=== PATIENT | female | born 1990 | race Caucasian/White ===

== ENCOUNTER 2017-07-22 10:53 | Inpatient (IN) | payer OTHER ==
[~2017-07-22] VITALS: Ht 162.6 cm; Wt 64.1 kg
[~2017-07-22 10:53] MED LIST: ABIL1TAB13 PO; ADDE15CA3 PO; ADDE20CA3 PO; BUPR15TA PO; DEPA1TAB3 PO; DEPA500T2 PO; DISU250T PO; FLUO20CA19 PO; FOLI1TAB4 PO; MINI1CAP PO; MULTCAP PO; NALT50TA4 PO; OXAZ10CA3 PO; PRAZ1CAP PO; QUET1TAB8 PO; REVI50TA2 PO; TRAZ50TA11 PO; VITA100T2 PO; WELLTAB38 PO; ZOLP10TA2 PO; unable to obtain
[2017-07-22] MEDS ORDERED: LORA1TAB12 PO (11:23)
[2017-07-22] MEDS ORDERED: ARIP1TAB6 PO (11:23)
[2017-07-22] MEDS ORDERED: ADDE15CA3 PO (11:23)
[2017-07-22] MEDS ORDERED: ZOLP10TA2 PO (11:23)
[2017-07-22] MEDS ORDERED: LAMO100T PO (11:23)
[2017-07-22 11:51] LABS: MEAN CORPUSCULAR HEMOGLOBIN 31.8 pg (27.0-33.0); MEAN CORPUSCULAR HGB CONC 34.4 g/dl (32.0-36.5); MEAN CORPUSCULAR VOLUME 92.4 fl (80.0-96.0); PLATELET COUNT, AUTOMATED 321 10^3/uL (150-450); RED CELL DISTRIBUTION WIDTH 12.6 % (11.5-14.5); WHITE BLOOD COUNT 12.4 10^3/uL (4.0-10.0)
[2017-07-22 12:06] LABS: CONTROL LINE HCG INT CTR LINE PRESENT
[2017-07-22 12:15] LABS: METHADONE URINE NEGATIVE (NEGATIVE)
[2017-07-22 12:25] LABS: ALBUMIN 4.2 GM/DL (3.2-5.2); ALKALINE PHOSPHATASE 95 U/L (45-117); ALT/SGPT 48 U/L (12-78); ANION GAP 5 MEQ/L (8-16); AST/SGOT 23 U/L (7-37); BILIRUBIN,DIRECT 0.2 MG/DL (0.0-0.2); BILIRUBIN,TOTAL 0.3 MG/DL (0.2-1.0); BLOOD UREA NITROGEN 11 MG/DL (7-18); CALCIUM LEVEL 9.2 MG/DL (8.5-10.1); CARBON DIOXIDE LEVEL 28 MEQ/L (21-32); CHLORIDE LEVEL 106 MEQ/L (98-107); CREATININE FOR GFR 0.49 MG/DL (0.55-1.02); GLOMERULAR FILTRATION RATE > 60.0 (>60); GLUCOSE, FASTING 97 MG/DL (70-105); POTASSIUM SERUM 4.2 MEQ/L (3.5-5.1); SODIUM LEVEL 139 MEQ/L (136-145); TOTAL PROTEIN 7.2 GM/DL (6.4-8.2)
[2017-07-22] MEDS: IBUPROFEN 600 MG TAB PO ONE ×2 (13:38→13:40)
[2017-07-22 16:44] VITALS: BP 139/79
[2017-07-22] MEDS: NICOTINE 21MG/24HR 1 EA TRANSDERMAL TD SCH (17:30)
[2017-07-22] MEDS ORDERED: MOM 30ML SUSPENSION UDC PO PRN (19:15)
[2017-07-22] MEDS ORDERED: MAALOX 30 ML SUSP *UDC PO PRN (19:15)
[2017-07-22] MEDS ORDERED: OLANZapine 5 MG TAB PO PRN (19:15)
[2017-07-22] MEDS: traZODone 50 MG TAB PO PRN (20:17)
[2017-07-22] MEDS: ACETAMINOPHEN TAB 650MG DOSE (2X325MG) PO PRN (20:18)
[2017-07-23 06:58] VITALS: BP 118/57
[2017-07-23] MEDS: NICOTINE 21MG/24HR 1 EA TRANSDERMAL TD SCH (08:57)
[2017-07-23] MEDS: lamoTRIgine 100MG TAB PO SCH (08:58)
--- NOTE | 2017-07-23 09:06 | HPEPDOC ---
[facility] Medical History & Physical Date of Admission Jul 22, 2017 History and Physical PCP: Regine ATTENDING: Dr. Gt Lawton HPI: 26yoF admitted to [facility] for unspecified depressive disorder, being medically examined today. Patient states that recently she pulled a muscle in her neck on the right side. There is tenderness in the muscular area. There is no pain over the cervical spine however she states she has chronic neck pain issues. She denies any radiating pain down the arms. No weakness, numbness, or tingling in upper extremities. She does not complain of headaches. Complaint of low back pain. No weakness, numbness, or tingling in lower extremities. Patient states she takes Lamictal for her mood. Denies any fevers, chills, weakness, fatigue, RAI, CP, SOB, cough, palpitations, abdominal pain, N/V/D or changes in bowel or bladder habits. PMHx: Anxiety Depression History of SI/overdose Bipolar disorder PTSD Insomnia History of self-mutilation/cutting History of alcohol abuse/completed rehabilitation 11/15 Tobacco use PSHX: Exploratory laparoscopy SOCHX: Resides in: [place], from [place] Marital Status: Kids: 3 Employment: [employer] Tobacco use: One half pack per day ETOH: One beer 3-4 days per week. On Saturday she states she drank 4-5. Illicit Drugs: Patient states has used some marijuana recently. IV Drug Use: Denies Tattoos done unprofessionally: Denies FAMHX: Mother: Alive, well Father: Alive, well Siblings: Alive, well Children: Alive, well Unexpected deaths due to medical reasons: None. ROS: As noted in HPI, otherwise 11pt ROS of systems reviewed and remarkable for LMP 07/22/17. PE: GEN: 26 yo F, appears stated age. Well-nourished, well developed. No acute distress. Alert and oriented x 3. Pleasant, interactive. HEENT: Normocephalic, atraumatic. Pupils are equal, round, and reactive to light. Extraocular movements are intact. No nystagmus appreciated. Sclera are nonicteric. Conjunctiva without injection. Nose midline. Nasal turbinates without bogginess. EACs both patent BL. TMs both visualized and curtis with good cone of light, no bulging or erythema. No facial asymmetry. Moist mucous membranes. Dentition fair. Pharynx pink and moist, no cobblestoning. Neck supple , trachea midline. No lymphadenopathy or thyromegaly appreciated. CHEST: Regular rate and rhythm, +S1, +S2 LUNGS: Clear to auscultation bilaterally. No wheezes, rales, or rhonchi. Breathing appears symmetric and easy. Patient is speaking in full sentences. No accessory muscle use. ABD: Round, soft, non-tender, non-distended. +Bowel sounds throughout. No rebound or guarding. No costovertebral angle tenderness. EXT: Pulses 2+ bilaterally dorsalis pedis and radial. No lower extremity edema appreciated. SKIN: [place], dry, warm. Capillary refill <2sec. No rashes. Healed cuts are noted to the left wrist, no new cuts noted. NEURO: Alert and oriented x 3. Cranial nerves III-XII are intact. No focal deficits appreciated. EKG: Pending A&P: 25yoF admitted to [facility] for SI 1. Psych. Plan per Psychiatry. EKG pending. 2. Tobacco use. NicoDerm available. 3. Leukocytosis. Patient is afebrile. Asymptomatic. Recheck CBC in a.m. 4. Follow up with PCP on discharge. Regine. 5. Chronic neck pain. Check x-ray of cervical spine. Continue Tylenol 650 mg every 6 hours as needed. Add ibuprofen 400 mg every 6 hours as needed. Lidoderm patch applied to the right side of the neck daily. Consider pain management if needed. 6. Staff member Gina MCKEON present throughout exam. Vital Signs Vital Signs Date Time Temp Pulse Resp B/P (MAP) Pulse Ox O2 Delivery O2 Flow Rate FiO2 07/23/17 06:58 97.1 67 14 118/57 (77) 07/22/17 16:44 98 Room Air Laboratory Data Labs 24H Laboratory Tests 2 07/22/17 11:37: Nucleated Red Blood Cells % (auto) 0.0, Anion Gap 5L, Glomerular Filtration Rate > 60.0, Calcium Level 9.2, Aspartate Amino Transf (AST/SGOT) 23, Alanine Aminotransferase (ALT/SGPT) 48, Alkaline Phosphatase 95, Total Bilirubin 0.3, Direct Bilirubin 0.2, Total Protein 7.2, Albumin 4.2, Albumin/Globulin Ratio 1.40, Thyroid Stimulating Hormone (TSH) 0.842, Human Chorionic Gonadotropin, Qual NEGATIVE, Salicylates Level 1.7L, Acetaminophen Level < 2.0L, Ethyl Alcohol Level < 0.003 07/22/17 11:38: Urine Amphetamines Screen NEGATIVE, Urine Benzodiazepines Screen NEGATIVE, Urine Opiates Screen NEGATIVE, Urine Methadone Screen NEGATIVE, Urine Barbiturates Screen NEGATIVE, Urine Phencyclidine Screen NEGATIVE, Urine Cocaine Metabolite Screen NEGATIVE, Urine Cannabinoids Screen NEGATIVE CBC/BMP Laboratory Tests 07/22/17 11:37 Red Blood Count 4.59, Mean Corpuscular Volume 92.4, Mean Corpuscular Hemoglobin 31.8, Mean Corpuscular Hemoglobin Concent 34.4, Red Cell Distribution Width 12.6 Home Medications Scheduled Amphetamine/Dextroamphetamine (Adderall Xr 15 mg) 1 Cap Cap, 1 CAP PO DAILY Scheduled PRN Lorazepam (Lorazepam) 1 Mg Tab, 1 TAB PO PRN PRN for ANXIETY/AGITATION Allergies Coded Allergies: Promethazine (Verified Allergy, Mild, rash, 07/22/17) Sophie Miranda Jul 23, 2017 09:06
[2017-07-23] MEDS: LIDOCAINE 5% (LIDODERM) PATCH TD SCH (09:12)
--- NOTE | 2017-07-23 10:33 | REP ---
Clinical: Neck pain . Technique: AP, lateral, flexion/extension, bilateral oblique, and open-mouth views. Findings: Alignment and lordosis is maintained. There is no evidence for acute fracture / compression injury or subluxation. No significant degenerative changes are appreciated. Oblique views demonstrate patent neural foramen. Open mouth view demonstrates normal C1-C2 articulation and odontoid process. Impression: Normal age-appropriate cervical spine series. Signed by Rosendo Cook MD 07/23/2017 10:24 A
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
[2017-07-23] MEDS: IBUPROFEN 400 MG TAB PO PRN (12:37)
[2017-07-23] MEDS: FLUoxetine 20 MG CAP PO SCH (13:25)
[2017-07-23] MEDS: ACETAMINOPHEN TAB 650MG DOSE (2X325MG) PO PRN (13:26)
[2017-07-23] MEDS ORDERED: LORazepam 0.5 MG TAB PO PRN (13:30)
[2017-07-23] MEDS: **NOTE PATIENT COMMENT** MISC XX SCH (21:00)
[2017-07-23] MEDS: PRAZOSIN 1 MG CAP PO SCH (21:52)
[2017-07-23] MEDS: traZODone 50 MG TAB PO PRN (21:52)
[2017-07-24 07:39] LABS: MEAN CORPUSCULAR HEMOGLOBIN 31.1 pg (27.0-33.0); MEAN CORPUSCULAR HGB CONC 33.5 g/dl (32.0-36.5); MEAN CORPUSCULAR VOLUME 92.9 fl (80.0-96.0); PLATELET COUNT, AUTOMATED 296 10^3/uL (150-450); RED CELL DISTRIBUTION WIDTH 12.4 % (11.5-14.5); WHITE BLOOD COUNT 10.9 10^3/uL (4.0-10.0)
[2017-07-24] MEDS: lamoTRIgine 100MG TAB PO SCH (08:27)
[2017-07-24] MEDS: FLUoxetine 20 MG CAP PO SCH (08:28)
[2017-07-24] MEDS: IBUPROFEN 400 MG TAB PO PRN (08:28)
[2017-07-24] MEDS: NICOTINE 21MG/24HR 1 EA TRANSDERMAL TD SCH (09:00)
[2017-07-24] MEDS: LIDOCAINE 5% (LIDODERM) PATCH TD SCH (09:04)
[2017-07-24] MEDS: ACETAMINOPHEN TAB 650MG DOSE (2X325MG) PO PRN ×2 (09:35→15:59)
--- NOTE | 2017-07-24 17:41 | MHIPNPDOC ---
[facility] Progress Note Progress Note DATE OF SERVICE: 07/24/17 HISTORY: As per ED report: "Patient presented this morning with a report of worsening sx of depression over the last couple of weeks. She reports being seen by her PCP earlier today & revealed this information. Her PCP reportedly recommended that she present here. Patient states that her provider at [facility] retired in May & made no f/u arrangements for her. She says that the other provider at the clinic refused to take her on & as a result, she has since run out of her meds. She says that she has noticed a decline in her mental health over the last couple of weeks, including worsening sx of depression. She reports h/o Bipolar D /O, although denies any recent manic/hypomanic episodes. She admits that she has been thinking about suicide more than usual lately, including ways in which she could end her life. She denies daily alcohol use, although admits that her intake has been increasing. She says that her increase is a bad sign, as her previous suicide attempts (overdose & cutting) have all been while under the influence of alcohol. During interview she was noted to be restless & tremulous , with increased PMA. While she is unclear regarding actual intent at this point , she has been clear about her thoughts & potential methods available. She has also reported having h/o both OD & cutting." VITAL SIGNS: See below. NEW TEST RESULTS: Red Blood Count 4.21, Mean Corpuscular Volume 92.9, Mean Corpuscular Hemoglobin 31.1, Mean Corpuscular Hemoglobin Concent 33.5, Red Cell Distribution Width 12.4 CURRENT MEDICATIONS: See below. MENTAL STATUS EXAMINATION: Patient is a 26-year old female, who is alert, dressed in hospital clothes, cooperative, good eye contact, fair hygiene and grooming. Speech: Is Normal in tone, rate and volume. Language skills are good. Thought processes including: Intact. Thought content: Anxious thought about going back home Abstract reasoning, and computation: Fair. Description of associations: Good. Description of abnormal or psychotic thoughts: Denies SI/HI, A/V hallucinations , thought delusions Judgment: Poor Insight: Poor Orientation: o x 3 Recent and remote memory: Intact Attention span and concentration: Fair Language: Normal. Fund of knowledge: Fair. Mood: Anxious Affect: Anxious DIAGNOSES: 1. Bipolar Disorder, depressed 2. PTSD ASSESSMENT: Patient's insight is limited. she says she thought she was going to be discharged today. She doesn't realize she's at high risk for suicide, especially now that she has increased her alcohol intake. MANAGEMENT PLAN: will continue with her same treatment plan. TIME SPENT: 20 minutes. Vital Signs Vital Signs Date Time Temp Pulse Resp B/P (MAP) Pulse Ox O2 Delivery O2 Flow Rate FiO2 07/23/17 21:52 136/74 07/23/17 06:58 97.1 67 14 07/22/17 16:44 98 Room Air Laboratory Data 24H Labs Laboratory Tests 2 07/24/17 07:24: Nucleated Red Blood Cells % (auto) 0.0 CBC/BMP Laboratory Tests 07/24/17 07:24 Red Blood Count 4.21, Mean Corpuscular Volume 92.9, Mean Corpuscular Hemoglobin 31.1, Mean Corpuscular Hemoglobin Concent 33.5, Red Cell Distribution Width 12.4 Current Medications Current Medications Acetaminophen (Tylenol Tab) 650 mg Q6HP PRN PO PAIN / FEVER Last administered on 07/24/17 15:59; Start 07/22/17 at 19:15; Stop 08/21/17 at 19:14 Al Hydrox/Mg Hydrox/Simethicone (Mylanta) 30 ml Q6HP PRN PO HEARTBURN; Start 07/22/17 at 19:15; Stop 08/21/17 at 19:14 Fluoxetine HCl (PROzac) 20 mg QAM PO Last administered on 07/24/17 08:28; Start 07/23/17 at 09:00; Stop 08/22/17 at 08:59 Home Med (Med Rec Complete!) ASDIRECTED XX ; Start 07/22/17 at 14:00; Stop at 14:03; Status DC Ibuprofen (Advil) 400 mg Q6HP PRN PO PAIN Last administered on 07/24/17 08:28 ; Start 07/23/17 at 09:15; Stop 08/22/17 at 09:14 Lamotrigine (LaMICtal) 200 mg QAM PO Last administered on 07/24/17 08:27; Start 07/23/17 at 09:00; Stop 08/22/17 at 08:59 Lidocaine (Lidoderm Patch) 1 patch DAILY TD Last administered on 07/24/17 09: 04; Start 07/23/17 at 09:00; Stop 08/22/17 at 08:59 Lorazepam (Ativan) 0.5 mg TIDP PRN PO ANXIETY; Start 07/23/17 at 13:30; Stop 07/30/17 at 13:29 Magnesium Hydroxide (Milk Of Magnesia) 30 ml DAILYPRN PRN PO CONSTIPATION; Start 07/22/17 at 19:15; Stop 08/21/17 at 19:14 Nicotine (Nicoderm Cq 21mg) 1 patch DAILY TD Last administered on 07/22/17 17 :30; Start 07/22/17 at 09:00; Stop 08/21/17 at 08:59 Non-Formulary Medication ( See Comment Field Below ) REMOVE LIDODERM PATCH DAILY@21 XX ; Start 07/23/17 at 21:00; Stop 08/22/17 at 20:59 Olanzapine (ZyPREXA) 5 mg Q6HP PRN PO ANXIETY/AGITATION; Start 07/22/17 at 19: 15; Stop 08/21/17 at 19:14 Prazosin HCl (Minipress) 1 mg QHS PO Last administered on 07/23/17 21:52; Start 07/23/17 at 21:00; Stop 08/22/17 at 20:59 Trazodone HCl (Desyrel) 50 mg QHSP PRN PO INSOMNIA Last administered on 21:52; Start 07/22/17 at 19:15; Stop 08/21/17 at 19:14 Allergies Coded Allergies: Promethazine (Verified Allergy, Mild, rash, 07/22/17) MARLYS BOOKER MD Jul 24, 2017 17:41
[2017-07-24 18:17] VITALS: BP 127/63
[2017-07-24] MEDS: PRAZOSIN 1 MG CAP PO SCH (21:06)
[2017-07-24] MEDS: **NOTE PATIENT COMMENT** MISC XX SCH (21:07)
[2017-07-24] MEDS: traZODone 50 MG TAB PO PRN (23:12)
[2017-07-25 06:50] VITALS: BP 114/53
[2017-07-25] MEDS: NICOTINE 21MG/24HR 1 EA TRANSDERMAL TD SCH (08:30)
[2017-07-25] MEDS: FLUoxetine 20 MG CAP PO SCH (08:32)
[2017-07-25] MEDS: LIDOCAINE 5% (LIDODERM) PATCH TD SCH (08:32)
[2017-07-25] MEDS: lamoTRIgine 100MG TAB PO SCH (08:32)
[2017-07-25] MEDS: ACETAMINOPHEN TAB 650MG DOSE (2X325MG) PO PRN ×2 (08:34→16:31)
[2017-07-25] MEDS: IBUPROFEN 400 MG TAB PO PRN (09:54)
[2017-07-25] MEDS ORDERED: traZODone 100 MG TAB PO PRN (18:30)
[2017-07-25] MEDS: **NOTE PATIENT COMMENT** MISC XX SCH (20:32)
[2017-07-25 20:44] VITALS: BP 112/57
[2017-07-25 22:42] VITALS: BP 126/67
[2017-07-25] MEDS: PRAZOSIN 1 MG CAP PO SCH (22:42)
[2017-07-26] MEDS: NICOTINE 21MG/24HR 1 EA TRANSDERMAL TD SCH (08:27)
[2017-07-26] MEDS: FLUoxetine 20 MG CAP PO SCH (08:29)
[2017-07-26] MEDS: lamoTRIgine 100MG TAB PO SCH (08:30)
[2017-07-26] MEDS: LIDOCAINE 5% (LIDODERM) PATCH TD SCH (08:30)
[2017-07-26] MEDS ORDERED: TRAZ10TA PO (11:13)
[2017-07-26] MEDS ORDERED: MINI1CAP PO (11:13)
[2017-07-26] MEDS ORDERED: OLAN5TAB PO (11:13)
[2017-07-26] MEDS ORDERED: ATIV1TAB10 PO (11:13)
[2017-07-26] MEDS ORDERED: LAMO10TA PO (11:13)
[2017-07-26] MEDS ORDERED: FLUO20CA19 PO (11:13)
--- NOTE | 2017-07-26 12:00 | IPN ---
DATE OF SERVICE: 07/25/2017 HISTORY: 26-year-old female admitted for treatment of depression, posttraumatic stress disorder, and bipolar disorder. MEDICATIONS: - Lamictal 200 mg by mouth every morning - Prozac 20 mg by mouth every morning - Prazosin 1 mg by mouth daily at bedtime - trazodone 50 mg by mouth daily at bedtime as needed for insomnia SUBJECTIVE: "I could not sleep well. I used to take Ambien". OBJECTIVE: No major changes from yesterday. Patient continues depressed with sad restricted facial expression. Minimal interaction with other patients and staff. Denies side effect from the medication. No evidence of psychotic symptoms. No auditory or visual hallucinations or delusions. MENTAL STATUS EXAMINATION: Patient dressed in [facility]. Patient is cooperative during exam. Has fair eye contact. His speech is low and monotone. Mood is depressed and anxious. Affect is restricted. No delusions or hallucinations. Memory, attention and concentration are fair. Patient is able to contract for safety during her hospitalization. Insight and judgment is limited. ASSESSMENT: 1. Depression. 2. Suicidal ideation. PLAN: 1. Continue with Lamictal 200 mg by mouth daily every morning. 2. Continue Prazosin 1 mg by mouth daily at bedtime. 3. Continue Prozac 20 mg by mouth daily every morning. 4. Increase trazodone to 100 mg by mouth daily at bedtime as needed for insomnia.
--- NOTE | 2017-07-29 12:08 | MHDSPDOC ---
[facility] Discharge Summary Discharge Summary DATE OF ADMISSION: Jul 22, 2017 at 13:08 DATE OF DISCHARGE: Jul 26, 2017 at 14:20 DISCHARGE DIAGNOSES: 1. Bipolar Disorder, depressed 2. PTSD REASON FOR ADMISSION: "My PCP felt I'm at suicidal risk because I'm not in my medication at this time" History of Present Illness HISTORY OF THE PRESENT ILLNESS: As per ED report: "Patient presented this morning with a report of worsening sx of depression over the last couple of weeks. She reports being seen by her PCP earlier today & revealed this information. Her PCP reportedly recommended that she present here. Patient states that her provider at [facility] retired in May & made no f/ u arrangements for her. She says that the other provider at the clinic refused to take her on & as a result, she has since run out of her meds. She says that she has noticed a decline in her mental health over the last couple of weeks, including worsening sx of depression. She reports h/o Bipolar D /O, although denies any recent manic/hypomanic episodes. She admits that she has been thinking about suicide more than usual lately, including ways in which she could end her life. She denies daily alcohol use, although admits that her intake has been increasing. She says that her increase is a bad sign, as her previous suicide attempts (overdose & cutting) have all been while under the influence of alcohol. During interview she was noted to be restless & tremulous , with increased PMA. While she is unclear regarding actual intent at this point , she has been clear about her thoughts & potential methods available. She has also reported having h/o both OD & cutting." She has not been feeling manic lately, but she has been depressed and says she had suicidal thoughts twice. CONSULTANTS INVOLVED: None TREATMENT AND PROGRESS ON THE UNIT : The patient was started on medications at the [facility], she had a good response to them and she did not report negative side effects. She stated she was agreeable to her admission but then, she was asking to be discharged and I explained to her it was not possible because we needed to observe her response to medications and because she was at high risk for suicide. She had two previous suicide attempts and they happened when she was under the influence of alcohol. Initially she tried to minimize her symptoms and finally she admitted she had problems with alcohol although she said she didn't drink everyday. She always said she disagreed with her PCP, she didn't think she needed to be admitted but she didn't recognize the risk of another suicide attempt especially because she had increased the alcohol intake. She wanted to be discharged before Thanksgiving, but she was admitted only 48 hours before Thanksgiving. I explained to her she needed to stay until she was stabilized. she was able to understand and accept this. HOSPITAL COURSE: As above DISCHARGE ASSESSMENT: She was not in danger to self or others, she was not suicidal and not homicidal. She was not psychotic. MENTAL STATUS EXAMINATION ON DISCHARGE: Patient is a 26-year old female, who is alert, dressed in hospital clothes, cooperative, good eye contact, fair hygiene and grooming. Speech: Is Spontaneous and fluent Language skills are good. Thought processes including: coherent Thought content: focused on her discharge Abstract reasoning, and computation: Fair. Description of associations: Good. Description of abnormal or psychotic thoughts: Denies SI/HI, A/V hallucinations and denies thought delusions Judgment: Improved Insight: Improved Orientation: o x 3 Recent and remote memory: Intact Attention span and concentration: Fair Language: Normal. Fund of knowledge: Fair. Mood: Euthymic Affect: Euthymic MEDICATIONS ON DISCHARGE: Amphetamine/Dextroamphetamine (Adderall Xr 15 mg) 1 Cap Cap, 1 CAP PO DAILY, ( Reported) Fluoxetine Hcl (Fluoxetine HCl) 20 Mg Cap, 20 MG PO QAM for DEPRESSION, #10 Lamotrigine (LaMICtal) 100 Mg Tab, 200 MG PO QAM for MOOD, #14 Prazosin HCl (Minipress) 1 Mg Cap, 1 MG PO QHS for NIGHTMARES, #7 Scheduled PRN Lorazepam (Lorazepam) 1 Mg Tab, 1 TAB PO PRN PRN for ANXIETY/AGITATION, ( Reported) Olanzapine (Olanzapine) 5 Mg Tab, 5 MG PO Q6HP PRN for ANXIETY/AGITATION, #28 Trazodone HCl (Trazodone HCl) 100 Mg Tab, 100 MG PO QHSP PRN for INSOMNIA, #7 PLAN/FOLLOWUP ARRANGEMENTS: Follow Up Care Education Label * Mental Health Appt 1 * Mental Health [facility] * Established With This Provider Yes * Therapist Sweetie Xie * * Additional information [facility] is closed on Fridays. [facility] to call pt with follow up appointment. Follow Up Care Education Label * Chemical Dependency Appt1 * Chemical Dependency [facility] * Established With This Provider No NEW PATIENT APPOINTMENT * Therapist AVAILABLE THERAPIST * Date Jul 29, 2017 * Time 09:00 * Address of Clinic or Practice [address] [place] [address] The amount of time spent in the coordination of care for this patient was approximately 30 minutes. Vital Signs/I&Os Vital Signs Date Time Temp Pulse Resp B/P (MAP) Pulse Ox O2 Delivery O2 Flow Rate FiO2 07/25/17 22:42 126/67 07/25/17 20:44 98.1 72 16 07/25/17 06:50 Room Air Medications Scheduled Amphetamine/Dextroamphetamine (Adderall Xr 15 mg) 1 Cap Cap, 1 CAP PO DAILY, ( Reported) Fluoxetine Hcl (Fluoxetine HCl) 20 Mg Cap, 20 MG PO QAM for DEPRESSION, #10 Lamotrigine (LaMICtal) 100 Mg Tab, 200 MG PO QAM for MOOD, #14 Prazosin HCl (Minipress) 1 Mg Cap, 1 MG PO QHS for NIGHTMARES, #7 Scheduled PRN Lorazepam (Lorazepam) 1 Mg Tab, 1 TAB PO PRN PRN for ANXIETY/AGITATION, ( Reported) Olanzapine (Olanzapine) 5 Mg Tab, 5 MG PO Q6HP PRN for ANXIETY/AGITATION, #28 Trazodone HCl (Trazodone HCl) 100 Mg Tab, 100 MG PO QHSP PRN for INSOMNIA, #7 Allergies Coded Allergies: Promethazine (Verified Allergy, Mild, rash, 07/22/17) MARLYS BOOKER MD Jul 29, 2017 12:08
== END 2017-07-26 14:20 | disposition home or self-care (01) | DRG 885 ==
LOC: M ED 10:53 → M ED INP 13:08 → M PSY 15:16
PROVIDERS: ADMIT Psychiatry & Neurology Psychiatry; ATTEND Psychiatry & Neurology Psychiatry
DX: F31.9 Bipolar disorder, unspecified (principal); R45.851 Suicidal ideations; F43.10 Post-traumatic stress disorder, unspecified; F17.210 Nicotine dependence, cigarettes, uncomplicated; M54.2 Cervicalgia; Z91.5 Personal history of self-harm; Z79.899 Other long term (current) drug therapy; Z88.8 Allergy status to other drugs, medicaments and biological substances

== ENCOUNTER 2017-09-25 15:04 | Emergency (ER) | payer OTHER ==
[2017-09-25 15:56] LABS: KETONE, URINE AUTO RFX 1+ mg/dL (NEGATIVE); MUCUS, URINE RFX SMALL (NEGATIVE); NITRITE, URINE AUTO RFX NEGATIVE (NEGATIVE); RBC, URINE AUTO RFX TNTC /HPF (0-3); SPECIFIC GRAVITY UR AUTO RFX 1.015 (1.002-1.035); SQUAM EPITHELIAL CELL UR AURFX 0 /HPF (0-6); TRANSITIONAL EPITHELIAL AU RFX 1 /HPF
[2017-09-25 15:57] LABS: LEUKOCYTE ESTERASE UR AUTO RFX 2+ (NEGATIVE); WBC, URINE AUTO RFX TNTC /HPF (0-3)
[2017-09-25] MEDS: NITROFURANTOIN (MACROBID) 100 MG CAP PO (17:49)
[2017-09-25] MEDS: PHENAZOPYRIDINE 100 MG TAB PO (17:49)
[2017-09-25 17:59] LABS: CONTROL LINE UCG INT CTR LINE PRESENT; URINE PREG TEST NEGATIVE (NEGATIVE)
== END 2017-09-25 17:54 | disposition home or self-care (01) ==
LOC: M ED 15:04
DX: N30.91 Cystitis, unspecified with hematuria (principal); F33.9 Major depressive disorder, recurrent, unspecified; F41.9 Anxiety disorder, unspecified; F43.10 Post-traumatic stress disorder, unspecified; Z91.5 Personal history of self-harm; F10.21 Alcohol dependence, in remission; F19.21 Other psychoactive substance dependence, in remission; Z79.899 Other long term (current) drug therapy; Z88.1 Allergy status to other antibiotic agents; Z88.2 Allergy status to sulfonamides; Z88.8 Allergy status to other drugs, medicaments and biological substances; Z87.891 Personal history of nicotine dependence
CPT/HCPCS: 84703